=== PATIENT | female | born 1975 | race Caucasian/White ===

== ENCOUNTER → 2017-01-13 | Outpatient (CLI) | payer OTHER ==
[~2017-01-13] MED LIST: ALBUTEROL17 GM INH; AMOXICILLIN875 MG PO; BENTYL20 MG PO; KEPPRA1000 MG PO; MEDROL DOSEPAK4 MG; ROBITUSSIN A-C S5 ML PO; TESSALON200 MG PO; TOPAMAX PO; ZITHROMAX PO; ZOFRAN ODT4 MG PO
--- NOTE | ~2017-01-13 | US85 ---
[facility] A Service [facility] RADIOLOGY TEXT RESULTS PATIENT: MAX MONTES DE OCA LOCATION: SNIV : 71 UNIT #: [id number] AGE: [address]: Santos Gallegos MD SEX: F ORDER DR: [id number] [place] [address] [id number] O MR#: [id number] Acc #: [id number] NAME: MAX MONTES DE OCA : 1975 SEX: F STUDY DATE/TIME: 01/13/2017 16:20 UNIT: SNIV ROOM: STUDY DESCRIPTION: [facility] Attending Physician: Santos Gallegos M.D. Referring Physician: Santos Gallegos M.D. Ordering Physician: Santos Gallegos M.D. Primary Care Physician: Pippa Larkin A.P.R.N. MEDICAL IMAGING REPORT This report is preliminary unless electronic signature is present. EXAM Unilateral left lower extremity venous Doppler, 01/13/2017 HISTORY Prior history of left lower extremity DVT. No comparison. PROCEDURE Plata-scale imaging, color Doppler flow imaging and Doppler waveform analysis. FINDINGS There is normal color flow and compressibility and/or respiratory phasicity in the common and superficial femoral and popliteal veins and below knee anterior and posterior tibial veins. However, there is occlusive thrombus in the deep femoral vein. The superficial saphenous veins are normal. IMPRESSION Positive for occlusive thrombus in the deep femoral vein distally. Dictated by... Lee Mobley M.D. THIS IS AN ELECTRONICALLY VERIFIED REPORT Lee Mobley M.D. at 01/16/2017 3:47 PM TEV/ljd [facility] A Service [facility] RADIOLOGY TEXT RESULTS PATIENT: MAX MONTES DE OCA LOCATION: SNIV : 71 UNIT #: [id number] AGE: [address]: Santos Gallegos MD SEX: F ORDER DR: TD: 01/14/2017 04:30 JOB #: [id number] MEDICAL IMAGING REPORT
== END | disposition home or self-care (01) ==
LOC: SNIV 15:44
DX: M79.89 Other specified soft tissue disorders (principal); M79.605 Pain in left leg; I82.412 Acute embolism and thrombosis of left femoral vein
CPT/HCPCS: 93971

== ENCOUNTER → 2017-04-16 | Outpatient (CLI) | payer OTHER ==
--- NOTE | ~2017-04-16 | US85 ---
[facility] A Service of [facility] RADIOLOGY TEXT RESULTS PATIENT: MAX MNOTES DE OCA LOCATION: SNIV : 71 UNIT #: [id number] AGE: [address]: Santos Gallegos MD SEX: F ORDER DR: [id number] [address] [address] [id number] O MR#: [id number] Acc #: [id number] NAME: MAX MONTES DE OCA : 1975 SEX: F STUDY DATE/TIME: 04/16/2017 15:04 UNIT: SNIV ROOM: STUDY DESCRIPTION: [facility] Attending Physician: Santos Gallegos M.D. Referring Physician: Santos Gallegos M.D. Ordering Physician: Pippa Larkin A.P.R.N. Primary Care Physician: Pippa Larkin A.P.R.N. MEDICAL IMAGING REPORT This report is preliminary unless electronic signature is present. EXAM Left lower extremity venous duplex 04/16/2017 HISTORY Followup left lower extremity DVT. Status post ACL surgery June 2016. Patient was placed on Coumadin and remains on Coumadin at the time of the examination. Previous lower extremity venous obtained 01/13/2017 demonstrated persistent thrombus in the left deep femoral vein, follow up. FINDINGS The examination is abnormal demonstrating new nonocclusive thrombus in the left superficial femoral vein compared with 01/13/2017. Previously noted thrombus in the left deep femoral vein has resolved. There is normal blood flow and compressibility in the left common femoral vein and left popliteal vein. Normal blood flow and compressibility is seen in the left anterior and posterior tibial veins. The left peroneal vein was not visualized. Findings were called to the ordering clinician's office at 08:40 a.m. on 04/16/2017. IMPRESSION 1. Abnormal examination demonstrating a focus of nonocclusive thrombus in the left superficial femoral vein. This is new compared with the previous exam dated 01/13/2017. 2. Resolution of previously noted thrombus in the left deep femoral vein from 01/13/2017. 3. Exam is somewhat limited as the left peroneal vein was not visualized. STAT * RESULT [facility]. [facility] A Service of [facility] & [facility] RADIOLOGY TEXT RESULTS PATIENT: MAX MONTES DE OCA LOCATION: [facility] : [birth year] UNIT #: [id number] AGE: [address]: Santos Gallegos MD SEX: F ORDER DR: Dictated by... Fernando Howard M.D. THIS IS AN ELECTRONICALLY VERIFIED REPORT Fernando Howard M.D. at 04/17/2017 1:44 PM NOHEMY/bina TD: 04/17/2017 08:43 JOB #: [id number] MEDICAL IMAGING REPORT Page 1 of 1
== END | disposition home or self-care (01) ==
LOC: SNIV 09:00
DX: I82.812 Embolism and thrombosis of superficial veins of left lower extremity (principal); I82.512 Chronic embolism and thrombosis of left femoral vein; Z79.01 Long term (current) use of anticoagulants
CPT/HCPCS: 93971